=== PATIENT | female | born 1980 | race Caucasian/White ===

== ENCOUNTER 2016-09-08 19:55 | Emergency (ER) | payer OTHER ==
[2016-09-08 20:02] VITALS: PULSE 76; RESP 16
--- NOTE | 2016-09-08 21:55 | EDPHY ---
H & P Stated Complaint: pt says she cut her L thumb with a saw, thinks she might need sutures Source: Patient, Family Exam Limitations: No limitations - Personal History Current Tetanus Diphtheria and Acellular Pertussis (TDAP): Yes - Medical/Surgical History Hx Asthma: No Hx Chronic Respiratory Disease: No Hx Diabetes: No Hx Cardiac Disease: No Hx Renal Disease: No Hx Cirrhosis: No Hx Alcoholism: No Hx HIV/AIDS: No Hx Splenectomy or Spleen Trauma: No Other PMH: polycycstic ovarian syndrome, salpingectomy, tonsillectomy - Social History Smoking Status: Current some day smoker HPI/ROS: CHIEF COMPLAINT: Thumb laceration HISTORY OF PRESENT ILLNESS: Patient was cutting a piece of wood with hand saw when it skipped off the wood, cutting the dorsum of her left thumb. This was over the IP joint. Minimally painful. Moderate bleeding. Stop with minimal pressure. No numbness or tingling. No difficulty extending the thumb. No injury elsewhere. Tetanus was updated less than 5 years ago for previous injury. No injury elsewhere. No other associated complaints or modifying factors. TIME OF INJURY: 8:00 p.m. TETANUS STATUS: Less than 5 years ago REVIEW OF SYSTEMS: Ten systems reviewed and are negative unless otherwise noted in the HPI EXAMINATION General Appearance: Alert, no distress Head: normocephalic, atraumatic Eyes: Pupils equal and round, no conjunctival pallor or injection Cardiovascular: Pulses normal throughout. Symmetric radial pulses are 2+ Brisk cap refill Neurological: A&O, sensory symmetric, strength symmetric. Two point sensation intact. Skin: Warm and dry, no rash. 0.75 cm laceration over the dorsum of the left thumb, over the IP joint. No foreign body. No exposure of the extensor tendon Extremities: Nontender, no pedal edema. Full range of motion of the left hand including flexion and extension of the thumb. Full abduction, abduction and opposition of the thumb. Excellent strength of the interossei muscles. MDM: 9:50 p.m. Superficial laceration to the dorsum of the left thumb overlying the IP joint. No exposure of the foot extensor tendon. Neurovascular intact. I have applied a digital block. Proceed with irrigation and closure. PROCEDURE: Digital Block Indication: Finger laceration Consent: Verbal Location: left thumb, dorsum overlying the IP joint Anesthesia: Lidocaine 1% plain, 0.25% Marcaine plain, 5mL Description: The area at the bases thumb was prepped with chlorhexidine. The above medications were infused between the proper palmar digital nerves with good anesthesia. Tolerated well. Complications: None PROCEDURE: Laceration repair Consent: Verbal Location: left thumb, dorsal Length of repair: 0.75 cm over the IP joint. Complexity: Simple Layer involvement: Single Anesthesia: Digital block as above Irrigation: Extensive Debridement: None Procedure description: Following good anesthesia, the wound was copiously irrigated. Wound bed was explored and there is no foreign body noted. Wound borders were approximated well with good hemostasis. Tolerated well without complication. Suture/Staple material: 5-0 Ethilon, 2 simple interrupted sutures Wound care: Routine as discussed Suture/Staple removal: 7-10 Days 10:43 p.m. Thumb laceration without complication. Wound has been irrigated. I did re- explored the wound prior to suture. There is no foreign body. There is no exposure of the extensor tendon. The wound was closed with 2 simple interrupted sutures without complication. Wound care discussed. Dressing applied. 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 She is to follow up here or with hand surgeon for definitive care and suture removal. She is comfortable this plan, neurovascular intact, and discharged home stable condition. SUTURE STAPLE REMOVAL: 7-10 days ED Precautions: Worsening pain. Erythema, edema, cyanosis, pallor, paresthesia or anesthesia. SUPERVISION: This patient was independently evaluated without direct examination by the attending physician. Case was discussed with attending physician. (Marcus Guerin ) Constitutional: Initial Vital Signs Temperature (C) 98.1 F 09/08/16 19:57 Heart Rate 76 09/08/16 19:57 Respiratory Rate 16 09/08/16 19:57 Blood Pressure 107/79 09/08/16 19:57 O2 Sat (%) 97 09/08/16 19:57 O2 Delivery Mode Room Air Allergies/Adverse Reactions: No Known Allergies Allergy (Unverified 09/08/16 20:02) Home Medications: Medication Instructions Recorded FOLIC ACID 09/08/16 Metformin HCl 09/08/16 Medical Decision Making ED Course/Re-evaluation: I did not see this patient while she was in the emergency department. However her care was discussed with the PA while the patient was in the department. I agree with treatment plan and management (Mendez Rasmussen) Departure - Departure Disposition: Home, Routine, Self-Care Clinical Impression: Laceration of thumb Qualifiers: Encounter type: initial encounter Damage to nail status: without damage Foreign body presence: without foreign body Laterality: left Qualified Code(s): S61.012A - Laceration without foreign body of left thumb without damage to nail , initial encounter Condition: Good Instructions: Care For Your Stitches (ED), Laceration (ED) Additional Instructions: Wound care as discussed. Return here in 7-10 days for suture removal. Return sooner for signs of infection as discussed. Recommend light activity for the next 3-5 days Referrals: Katia Courtney MD [[facility] [place] Primary Care Provider] - As per Instructions NONE *PRIMARY CARE P,. [Primary Care Provider] - As per Instructions Rao Tellez MD [Medical Doctor] - As per Instructions
[2016-09-08 22:46] VITALS: BP 122/75; TEMP 97.7; O2SAT 95
== END 2016-09-08 22:46 | disposition home or self-care (01) ==
PROC: 0HQGXZZ Repair Left Hand Skin, External Approach (ICD-10-PCS; principal; 2016-09-08)
DX: S61.012A Laceration without foreign body of left thumb without damage to nail, initial encounter (principal); F17.200 Nicotine dependence, unspecified, uncomplicated; W31.2XXA Contact with powered woodworking and forming machines, initial encounter

== ENCOUNTER 2018-07-23 19:56 | Emergency (ER) | payer OTHER ==
[2018-07-23 20:01] VITALS: BP 108/73
[2018-07-23] MEDS ORDERED: PROPARACAINE 0.5% 15 ML OPHT DROP ONE (20:13)
[2018-07-23] MEDS ORDERED: PROPARACAINE/FLUORESCEIN SOD 5 ML OPHT.BTL ONE (20:14)
--- NOTE | 2018-07-23 20:19 | EDPHY ---
H & P Stated Complaint: Cooking grease in R eye Time Seen by Provider: 07/23/18 20:07 HPI/ROS: CHIEF COMPLAINT: Right eye burn HISTORY OF PRESENT ILLNESS: Patient is a 37-year-old female who splash some coconut oil into her right eye. This happened about 40 min ago. She put several drops of Visine to flush it out and later developed some pain on her cornea. He does not have any pain or swelling of her eyelids. Normal vision. She does not wear glasses or contact lenses. Severity: Moderate Modifying factors: None REVIEW OF SYSTEMS: Constitutional: denies: chills, fever, recent illness, recent injury EENTM: See HPI Respiratory: denies: cough, shortness of breath Cardiac: denies: chest pain, irregular heart rate, lightheadedness, palpitations Gastrointestinal/Abdominal: denies: abdominal pain, diarrhea, nausea, vomiting, blood streaked stools Genitourinary: denies: dysuria, frequency, hematuria, pain Musculoskeletal: denies: joint pain, muscle pain Skin: denies: lesions, rash, jaundice, bruising Neurological: denies: headache, numbness, paresthesia, tingling, dizziness, weakness Hematologic/Lymphatic: denies: blood clots, easy bleeding, easy bruising Immunologic/allergic: denies: HIV/AIDS, transplant 10 systems reviewed and negative except as noted EXAM: GENERAL: Well-appearing, well-nourished and in no acute distress. HEAD: Atraumatic, normocephalic. EYES: Very slight corneal burn see diagram, Pupils equal round and reactive to light, extraocular movements intact, sclera anicteric, normal. ENT: TMs normal, nares patent, oropharynx clear without exudates. Moist mucous membranes. NECK: Normal range of motion, supple without lymphadenopathy or JVD. LUNGS: Breath sounds clear to auscultation bilaterally and equal. No wheezes rales or rhonchi. HEART: Regular rate and rhythm without murmurs, rubs or gallops. ABDOMEN: Soft, nontender, normoactive bowel sounds. No guarding, no rebound. No masses appreciated. BACK: No CVA tenderness, no spinal tenderness, step-offs or deformities EXTREMITIES: Normal range of motion, no pitting or edema. No clubbing or cyanosis. NEUROLOGICAL: Cranial nerves II through XII grossly intact. Normal speech, normal gait. 5/5 strength, normal movement in all extremities, normal sensation , normal reflexes PSYCH: Normal mood, normal affect. SKIN: Warm, dry, normal turgor, no visible rashes or lesions. Source: Patient Exam Limitations: No limitations - Personal History LMP (Females 10-55): 15-21 Days Ago Current Tetanus Diphtheria and Acellular Pertussis (TDAP): Yes - Medical/Surgical History Hx Asthma: No Hx Chronic Respiratory Disease: No Hx Diabetes: No Hx Cardiac Disease: No Hx Renal Disease: No Hx Cirrhosis: No Hx Alcoholism: No Hx HIV/AIDS: No Hx Splenectomy or Spleen Trauma: No Other PMH: polycycstic ovarian syndrome, salpingectomy, tonsillectomy - Social History Smoking Status: Current some day smoker Constitutional: Initial Vital Signs Temperature (C) 37 C 07/23/18 19:59 Heart Rate 84 07/23/18 19:59 Respiratory Rate 16 07/23/18 19:59 Blood Pressure 108/73 07/23/18 19:59 O2 Sat (%) 96 07/23/18 19:59 O2 Delivery Mode Room Air Allergies/Adverse Reactions: metronidazole [From Flagyl] Allergy (Verified 07/23/18 19:58) Home Medications: Medication Instructions Recorded FOLIC ACID 09/08/16 Metformin HCl 09/08/16 ED Images - Head Eyes Right/Left: 1 - Small burn Medical Decision Making ED Course/Re-evaluation: 8:20 p.m. the patient has a very small abrasion/burn involving the inside edge of her cornea. Will irrigate with L of fluids and start on antibiotic drops. Her vision is intact. Discussed follow-up. Declines further workup or testing. Discussed pain control. Differential Diagnosis: Partial list of the Differential diagnosis considered include but were not limited to; corneal abrasion, corneal burn, scleral injury and although unlikely based on the history and physical exam, I also considered traumatic iritis, foreign body. - Data Points Medications Given: Discontinued Medications Proparacaine HCl (Alcaine 0.5%) 1 drops OP EDNOW ONE Stop: 07/23/18 20:22 Last Admin: 07/23/18 20:42 Dose: Not Given Proparacaine HCl/Fluorescein Sodium (Flucaine) 2 drops OP EDNOW ONE Stop: 07/23/18 20:33 Last Admin: 07/23/18 20:38 Dose: 2 drop Tobramycin (Tobrex 0.3% Opht Drops Prepack) 1 btl TAKEHOME EDNOW ONE Stop: 07/23/18 20:22 Last Admin: 07/23/18 20:44 Dose: 1 btl Departure - Departure Disposition: Home, Routine, Self-Care Clinical Impression: Corneal burn Qualifiers: Encounter type: initial encounter Laterality: right Qualified Code(s): T26.11XA - Burn of cornea and conjunctival sac, right eye, initial encounter Condition: Fair Instructions: Tobramycin (Into the eye), Corneal Abrasion (ED) Additional Instructions: Tobrex drops: 2 drops every 4 hr for 4 days. Referrals: NONE *PRIMARY CARE P,. [Primary Care Provider] - As per Instructions Clayton Sánchez MD [Medical Doctor] - 2-3 days, if not improved
[2018-07-23] MEDS ORDERED: PROPARACAINE 0.5% 15 ML OPHT DROP OP ONE (20:21)
[2018-07-23] MEDS ORDERED: TOBRAMYCIN 0.3% SOLN PREPACK OPHT.BTL TAKEHOME ONE (20:21)
[2018-07-23] MEDS ORDERED: PROPARACAINE/FLUORESCEIN SOD 5 ML OPHT.BTL OP ONE (20:32)
== END 2018-07-23 21:08 | disposition home or self-care (01) ==
DX: T26.11XA Burn of cornea and conjunctival sac, right eye, initial encounter (principal); X10.2XXA Contact with fats and cooking oils, initial encounter

== ENCOUNTER 2018-07-27 20:04 | Emergency (ER) | payer OTHER ==
[2018-07-27 20:11] VITALS: BP 99/84
--- NOTE | 2018-07-27 20:47 | EDPHY ---
H & P Stated Complaint: low back pain Time Seen by Provider: 07/27/18 20:25 HPI/ROS: CHIEF COMPLAINT: Low back pain HISTORY OF PRESENT ILLNESS: 37-year-old female presents with low back pain. Long history of intermittent back pain. 2 weeks ago she was doing some exercises, including twisting exercises in a class. Onset of moderate low back pain after the class. The pain has been moderate and increases with any movement. No numbness or weakness. An MRI was performed through the [facility] today. Does not have an appointment with her physician for a few months. REVIEW OF SYSTEMS: complete 10 point ROS reviewed and is negative except for the noted elements in the HPI - Personal History LMP (Females 10-55): 15-21 Days Ago - Medical/Surgical History Hx Asthma: No Hx Chronic Respiratory Disease: No Hx Diabetes: No Hx Cardiac Disease: No Hx Renal Disease: No Hx Cirrhosis: No Hx Alcoholism: No Hx HIV/AIDS: No Hx Splenectomy or Spleen Trauma: No Other PMH: polycycstic ovarian syndrome, salpingectomy, tonsillectomy - Social History Smoking Status: Current some day smoker - Physical Exam Exam: General Appearance: Alert, pleasant Eyes: Pupils equal and round, no conjunctival pallor ENT, Mouth: Mucous membranes moist Neck: Normal inspection Respiratory: Lungs are clear to auscultation Cardiovascular: Regular rate and rhythm Gastrointestinal: Abdomen is soft and nontender Back: Diffuse tenderness of the lower lumbar area, without localization Neurological: A&O, motor 5/5, sensory intact to light touch, slow and steady gait Skin: Warm and dry, no rash Extremities: Normal inspection Psychiatric: Mood and affect normal Constitutional: Initial Vital Signs Temperature (C) 36.7 C 07/27/18 20:08 Heart Rate 93 07/27/18 20:08 Respiratory Rate 18 07/27/18 20:08 Blood Pressure 99/84 H 07/27/18 20:08 O2 Sat (%) 97 07/27/18 20:08 O2 Delivery Mode Room Air Allergies/Adverse Reactions: metronidazole [From Flagyl] Allergy (Verified 07/23/18 19:58) Home Medications: Medication Instructions Recorded FOLIC ACID 09/08/16 Metformin HCl 09/08/16 Diazepam [Valium 5 MG (*)] 5 mg PO Q6 PRN #15 tab 07/27/18 methylPREDNISolone [Medrol Dose 1 each PO AD #1 ea 07/27/18 Segun] Medical Decision Making ED Course/Re-evaluation: This patient presents with low back pain. Neurologic exam is normal and repeat neuro imaging is not indicated. Prescriptions for Medrol Dosepak and Valium given. Follow up with PCP. Differential Diagnosis: Differential diagnosis for back pain includes muscular pain, herniated disc, epidural abscess, discitis, spine fracture, intra-abdominal causes and urinary tract infection. Departure - Departure Disposition: Home, Routine, Self-Care Clinical Impression: Low back pain Qualifiers: Chronicity: acute Back pain laterality: bilateral Sciatica presence: without sciatica Qualified Code(s): M54.5 - Low back pain Condition: Good Instructions: Acute Low Back Pain (ED) Referrals: DR JASMINA [Other] - As per Instructions Prescriptions: Diazepam [Valium 5 MG (*)] 5 mg PO Q6 PRN #15 tab PRN Reason: muscle spasm methylPREDNISolone [Medrol Dose Segun] 1 each PO AD #1 ea
== END 2018-07-27 20:58 | disposition home or self-care (01) ==
DX: M54.5 Low back pain (principal)